=== PATIENT | female | born 1975 | race Caucasian/White ===

== ENCOUNTER 2016-11-13 07:17 | Day surgery (SDC) | payer BC ==
[~2016-11-13] VITALS: Ht 162.6 cm; Wt 81.8 kg
--- NOTE | ~2016-11-13 | OR ---
PATIENT'S NAME: [facility] AGE: 41 Y [address] ROOM: [address] [address] LOCATION: [facility] ADMIT DATE: 11/13/2016 OR/Procedure Report DISCHARGE DATE: FAMILY PHYSICIAN: CEDRIC NAVA APRN ATTENDING PHYSICIAN: Lit Lundy SURGEON: Lit Lundy MD ELECTRICAL POWER STATION TECHNICIAN: DATE OF PROCEDURE: 11/13/2016 PREOPERATIVE DIAGNOSIS: C5-C6 disk herniation. POSTOPERATIVE DIAGNOSIS: C5-C6 disk herniation with scarring in the epidural space. OPERATION PROPOSED: 1. Anterior cervical microdiskectomy, C5-C6. 2. Anterior cervical fusion, C5-C6. 3. Allograft for fusion. 4. Plating using the Inion absorbable plate. 5. Microscope. 6. Fluoroscopy with interpretation. DESCRIPTION OF PROCEDURE: Under general anesthesia, the patient was positioned supine. The neck was prepped and draped in the usual fashion. A linear incision was then carried out extending from the anterior border of the sternomastoid muscle to the midline. We went through the previous scar of the previous surgery and extended our dissection superiorly and inferiorly. We had to go through quite a bit of scar tissue to even get to the prevertebral fascia, which was all scarred down. We did our dissection medial to the carotid artery, and we removed the scar tissue anterior to the cervical spine. Two spinal needles were placed in adjacent disk spaces and this turned out to be the C4-C5, C5-C6 disk spaces. We then marked the C5-C6 disc space. Next, the longus coli muscle and scar tissue were then dissected away from the C5 and C6 vertebral body attachments and the lean six sigma black belt self-retaining retractor was then used for retraction. The incision into the disk, was extended. We had to use the Kerrison, 2 mm to remove the osteophyte that was the anterior osteophyte at the C5-C6 disk spaces. Next, the distraction rods were then screwed into the C5 and C6 vertebral bodies and the disk space was distracted. Next, the microscope was brought in. With the aid of the microscope, we increased the incision in the disk, and also started removing the disk using curettes and pituitaries, and at the very end when we thought we got to the posterior longitudinal ligament, we used a nerve hook to go posterior to the vertebral bodies. We were able to get a plane. I then pulled the nerve hook around and then made an incision to remove the scar tissue that was at this level. However, there was an area of scar tissue that really was densely PATIENT'S NAME: [facility] AGE: 41 Y [address] ROOM: [place] [address] LOCATION: [facility] ADMIT DATE: 11/13/2016 OR/Procedure Report DISCHARGE DATE: FAMILY PHYSICIAN: CEDRIC NAVA APRN ATTENDING PHYSICIAN: Lit Lundy attached to the dura which we were not able to completely remove. Having removed the dense tissue, we also removed the osteophyte that was compressing the dura. At the very end, we had to leave a small amount of scar tissue over the dura on the left side. The scar tissue was really floating with the dura itself. After this had been achieved, in which case we had removed the osteophytes, removed the disks and the dura was quite free. We used Gelfoam soaked in thrombin for hemostasis along with patties. We then removed the Gelfoam and patties. We used the allograft Sizer to get the right size allograft. We used an 8 cm height allograft which we were able to then tap into the empty disk space. After that was done, the distraction was discontinued, the distraction rods were removed, the holes created were filled with bone wax to prevent bleeding. Next, the anterior osteophytes at C5 and C6 were shaved off. The soft tissue was also shaved off from the anterior- inferior and the anterior-superior parts of C5-C6. Next, we got the Inion template and having gotten the appropriate size Inion plate, we did contour it given it some lordosis. Next, we attempted to use the plate holding pin, but really we were not successful. Consequently, I then just went ahead and using the drill guide starting on the left side of the superior hole in the plate which was directly within the C5 vertebral body. I then drilled and tapped at this site. I left the tapped in so as to help hold the plate. We then used the double barrel guide inferiorly, drilled and tapped through the hole into the vertebral bodies and then put the screws in. Next, we then drilled and tapped the 4th hole that was left and put the screw in and after that, we removed the tap in the 4th hole and then also put the screws in. At the end, the screws appeared to be in good position as well as the plate. The plate was quite firm. The wound was thoroughly irrigated with bacitracin irrigation. We then brought in the fluoro and got a fluoro of the cervical spine which shows that the plate and the screws were in good position, and consequently, we irrigated the wound with bacitracin irrigation, and I checked it out to make sure there was no bleeding and there was none. We then went ahead and closed the wound in a two-layer fashion. First the platysma and then the skin using the stephany. The patient tolerated the procedure well and was taken to the recovery room. MD DARIEN NAPIER/fidel /[id number] d: 11/13/16 1842 t: 11/23/16 1258, OPERATIVE SUMMARY
[~2016-11-13 07:17] MED LIST: ASPIRIN EC81 MG; BACTRIM DS1 TAB PO; CYTOMEL5 MCG PO; SOMA350 MG PO; [UNRECOGNIZED DRUG - OTHER] PO; [UNRECOGNIZED DRUG - OTHER] PO; [UNRECOGNIZED DRUG - OTHER] PO; [UNRECOGNIZED DRUG - OTHER] PO
--- NOTE | 2016-11-13 16:26 | NUR ---
Significant Event: From PACU at 1355. Ambulated to bed with two assist and gait belt. Denied numbness/tingling at that time. Morphine IVP and Percocet 1 tab for pain control. At 1410 patient family states that paitent was c/o numbness/tingling to R) arm and hand. Blood pressure cuff moved to L) arm and patient stated immediate releif. Dressing to R) anterior neck with moderate drainage. No void at this time. Follow up:
--- NOTE | 2016-11-14 04:23 | NUR ---
Significant Event: A/O X 3. SAT UP IN RECLINER CHAIR THIS SHIFT, MORE COMFORTABLE. HAD TINGLING END 3 FINGERS -TIPS EARLIER IN SHIFT AND IS GONE NOW. C/O RIGHT HAND BEING STIFF, TIGHTNESS, PATIENT HAS GOOD HAND GRASPS. FINGERS FWARM. MOVES ALL FINGERS OF BOTH HANDS, MOVES LOWER EXTREMITIES. RIGHT NECK DRSGS INTACT WITH SHADOWING MODERATE AMOUNT BLO0DY DRAINAGE. HAS NO PROBLEM SWALLOWING, BUT DISCOMFORT WHEN SWALLOWING. TAKES COLD FLUIDS WELL. EARLIER IN SHIFT C/0 NAUSEA, NO VOMITING. HAD ZOFRAN 4MG IV AT 1905, HAD TAKEN 3 SIPS OF SOUP FOR SUPPER. LATER NAUSEA SUBSIDED, TAKEN PUDDING. PAIN RATE 3 BEGINNING OF SHIFT. HAD SOMA 350MG AT 2200. HAD MORPHINE 4MG IV AT 0155 FOR PAIN RATE 4, LATER A 2. IV WAS SALINE LOCKED. UP TO BR WITH ONE ASSIST, FOOT PUMPS TO FEET. GAITBELT, VOIDED X 4 LARGE AMOUNT. AMBULATED IN HALLS X 2, GOOD TOLERANCE. POSSIBLE TO GO HOME TODAY. ICE BAG TO SHOULDERS. Follow up:
--- NOTE | 2016-11-14 09:25 | NUR ---
Introduced self/role to patient and her , they live in [place]. Denied any needs or barriers at home. Stated she needs her dressing changed before she leaves today. Mentioned this to her nurse. Added my name to her marker board.
[2016-11-14] MEDS ORDERED: PERCOCET 5-3251 EACH PO (09:46)
--- NOTE | 2016-11-14 10:55 | NUR ---
D: Patient dismissed to home with spouse assistance. Incision approximated with stephany. Island barrier dressing to incision. CSM WNL. Taking analgesic prn for pain with relief. Patient and spouse voice understanding of dismissal instruction. Dismissed with dismissal instructions, rx and belongings.
== END 2016-11-14 10:17 | disposition disaster alternative care site (69) ==
LOC: GPOC 07:17 → GPCU 07:17 → G3N 13:20 → GPOC 14:00
PROC: 0RG10K0 Fusion of Cervical Vertebral Joint with Nonautologous Tissue Substitute, Anterior Approach, Anterior Column, Open Approach (ICD-10-PCS; principal; 2016-11-13)
DX: M50.222 Other cervical disc displacement at C5-C6 level (principal); E03.9 Hypothyroidism, unspecified; M48.02 Spinal stenosis, cervical region; Z79.899 Other long term (current) drug therapy; Z98.890 Other specified postprocedural states
CPT/HCPCS: C1713; J0131; J0690; J1100; J1170; J2001; J2250; J2270; J2405; J3010; J7030